=== PATIENT | male | born 1965 | race Two or more races ===

== ENCOUNTER 2016-11-23 07:28 | Emergency (ER) | payer MEDICAID, MEDICARE ==
[~2016-11-23] VITALS: Ht 172.7 cm; Wt 70.3 kg
[2016-11-23 07:35] VITALS: BP 104/78
== END 2016-11-23 08:17 | disposition home or self-care (01) ==
LOC: ER 07:30
DX: L98.9 Disorder of the skin and subcutaneous tissue, unspecified (principal); F17.200 Nicotine dependence, unspecified, uncomplicated
CPT/HCPCS: A4606; Z7610

== ENCOUNTER 2021-06-26 03:25 | Emergency (ER) | payer MEDICARE ==
[~2021-06-26] VITALS: Ht 172.7 cm; Wt 79.4 kg
--- NOTE | 2021-06-26 03:33 | NUR ---
BIB ambulance. SOB 88% on RA. received breathing [facility] NURSE. to bed 5. spo2 now 92%. connected to monitor.
--- NOTE | 2021-06-26 03:47 | NUR ---
BLOOD WORK COLLECTD SENT TO LAB
--- NOTE | 2021-06-26 03:47 | NUR ---
COVID SWAB COLLECTED SENT TO LAB
[2021-06-26] MEDS ORDERED: ALBUTEROL FS 2.5 MG/3 ML VIAL.NEB ONE (03:48)
--- NOTE | 2021-06-26 03:48 | NUR ---
xray at bedside
[2021-06-26 03:51] VITALS: BP 151/64
[2021-06-26 03:59] LABS: BASOPHILS # (AUTO) 0.1 K/uL (0.0-0.2); HEMATOCRIT 42 % (39-51); HEMOGLOBIN 14.4 g/dL (13.5-17.5); LYMPHOCYTES # (AUTO) 1.6 K/uL (0.8-4.8); MEAN CORPUSCULAR HGB CONC 34 g/dl (31.0-36.0); MEAN CORPUSCULAR VOLUME 86 fL (80-96); MONOCYTES # (AUTO) 0.3 K/uL (0.1-1.30); NEUTROPHILS # (AUTO) 6.2 K/uL (1.8-8.9); PLATELET COUNT (AUTO) 195 K/uL (150-450); RED BLOOD CELL COUNT(AUTO) 4.95 MIL/uL (4.5-6.0); WHITE BLOOD COUNT (AUTO) 8.8 K/uL (4.3-11.0)
[2021-06-26] MEDS ORDERED: methylPREDNISolone SOD SUCC 125 MG/2ML VIAL IV ONE (04:00)
[2021-06-26] MEDS ORDERED: ALBUTEROL FS 2.5 MG/3 ML VIAL.NEB NEB ONE (04:00)
[2021-06-26 04:11] LABS: CALCIUM, SERUM 8.9 mg/dL (8.5-10.1); CARBON DIOXIDE 31 mmol/L (21-32); CHLORIDE 100 mmol/L (98-107); CREATININE 0.9 mg/dL (0.6-1.3); GLUCOSE 201 mg/dL (74-106); POTASSIUM 3.3 mmol/L (3.5-5.1); SODIUM SERUM 136 mmol/L (136-145); UREA NITROGEN, BLOOD 9 mg/dL (7-18)
[2021-06-26 04:23] LABS: ALANINE AMINOTRANSFERASE 22 U/L (12-78); ALBUMIN 3.5 g/dL (3.4-5.0); ALKALINE PHOSPHATASE 97 U/L (46-116); ASPARTATE AMINOTRANSFERASE 20 U/L (15-37); BILIRUBIN,DIRECT 0.1 mg/dL (0.0-0.2); BILIRUBIN,TOTAL 0.3 mg/dL (0.2-1.0); TOTAL PROTEIN, SERUM 7.3 g/dL (6.4-8.2)
--- NOTE | 2021-06-26 04:58 | NUR ---
Patient eloped from facility. ER MD notified.
== END 2021-06-26 05:03 | disposition left against medical advice (07) ==
LOC: ER 03:27
DX: J44.9 Chronic obstructive pulmonary disease, unspecified (principal); R09.02 Hypoxemia; Z20.822 Contact with and (suspected) exposure to COVID-19
CPT/HCPCS: 36415; 71045; 80048; 80076; 83605; 83880; 84484; 85025; 85378; 87040; 87426; 93005; 94640; 96374; 99285; C9803; J2930